=== PATIENT | female | born 1950 | race African-American/Black ===

== ENCOUNTER → 2022-08-11 | Outpatient (CLI) | payer MEDICARE ==
[~2022-08-11] MED LIST: 00186-0372-20 IH; ALBUTEROL SULFAT3 M3 IH; ALBUTEROL0.83 MG/ML IH; AMBIEN 10MG10 MG PO; ATROVENT I0.2 MG/1 M IH; DESYREL 100MG100 MG PO; INDERAL 20MG20 MG PO; MYRBETR50MG PO; NEURONTIN300 MG/CAP PO; PRILOSEC 20MG20 MG PO; PROAIR HFA0.09 MG/AC IH; PROTONIX 40MG T40 MG PO; TIMOLOL MALEATE5 M1 OP; XALATAN EYE DROPS OU; ZOFRAN 4MG T4 MG/TAB PO; ZOLOFT 100MG100 MG PO; ZYRTEC 10MG10 MG PO
== END ==
LOC: COL.VAS 13:49
DX: C50.412 Malignant neoplasm of upper-outer quadrant of left female breast (principal)